=== PATIENT | male | born 1955 | race Caucasian/White ===

== ENCOUNTER 2021-06-05 04:11 | Observation (INO) | payer MEDICARE ==
[2021-06-05] MEDS ORDERED: TORAdol 30 mg Injection ONE (04:56)
[2021-06-05] MEDS ORDERED: TORAdol 30 mg Injection IV ONE (04:56)
--- NOTE | 2021-06-05 05:02 | ERPHSYRPT ---
<CLARISSA HENDERSON - Last Filed: 06/05/21 08:05> - History of Present Illness Historian: patient Exam Limitations: other (Poor historian) Patient Subjective Stated Complaint: Patient c/o right lower abdomen pain that radiates to his right side and right lower back. Indicates he has had one loose stool since the pain began. Patient ate Long [employer]oni yesterday afternoon and the pain began shortley after that. Pain has been increasing since then and becomes worse when he takes a deep breath. Denies N/V. Triage Nursing Assessment: Patient brought back to ED in a wheelchair. He is alert and oriented and answering questions appropriately. Abdomen is large, firm, with hypoactive bowel sounds. Bowel sounds to right side of abdomen are distant. Pain increases with palpation. Timing/Duration: yesterday Activities at Onset: rest Quality: aching, dullness Abdominal Pain Onset Location: flank (R flank) Pain Radiation: no radiation Severity of Pain-Max: severe Severity of Pain-Current: severe Modifying Factors: Improves With: breathing Associated Symptoms: diarrhea, No back, No chest pain, No diaphoresis, No fever/chills, No fatigue, No headache, No heartburn, No loss of appetite, No nausea, No neck pain, No rash, No shortness of breath, No syncope, No testicular pain, No vomiting, No weakness Previous symptoms: no prior history Hx Tetanus, Diphtheria Vaccination/Date Given: Yes (Not tetanus) Hx Influenza Vaccination/Date Given: Yes Hx Pneumococcal Vaccination/Date Given: No Immunizations Up to Date: Yes <COREY CARMONA - Last Filed: 06/09/21 07:33> - History of Present Illness Physician History: 65 yo wm w R flank pain x 1 day which is 8/10, worse w deep breaths, and described as a dull ache. He has had mild diarrhea but denies N/V/dysuria/hematuria/fever/melena/hematochezia. (COREY CARMONA) Allergies/Adverse Reactions: Penicillins Allergy (Verified 06/05/21 04:22) Home Medications: Atorvastatin Calcium [Lipitor] 1 tab PO HS 06/05/21 [History] Hydrocodone/Acetaminophen [Hydrocodone-Acetamin 7.5-325] 1 tab PO BID PRN 06/05/21 [History] Insulin Glargine [Lantus Insulin] 50 unit SQ DAILY 06/05/21 [History] Insulin Lispro [Humalog] See Protocol SQ CLARIFY 06/05/21 [History] Zolpidem Tartrate 10 mg [Ambien 10 MG] 1 tab PO HS 06/05/21 [History] Travel Risk - International Travel Have you traveled outside of the country in past 3 weeks: No - Coronavirus Screening Are you exhibiting any of the following symptoms?: Yes Symptoms: Vomiting/Diarrhea Close contact with a COVID-19 positive Pt in past 14-21 Days: No - Vaccine Status Have you recieved a Covid-19 vaccination: Yes [employer]: [employer] - Vaccination Dates Date of 2cond Vaccination (if applicable): 2020 <COREY CARMONA Filed: 06/09/21 07:33> - Review of Systems Constitutional: No Symptoms Eyes: No Symptoms Ears, Nose, & Throat: No Symptoms Respiratory: No Symptoms Cardiac: No Symptoms Abdominal/Gastrointestinal: No Symptoms, Abdominal Pain, Diarrhea, No Nausea, No Vomiting, No Constipation, No Hematemesis, No Hematochezia, No Melena, No Dysphagia, No Appetite Changes Genitourinary Symptoms: No Symptoms Musculoskeletal: No Symptoms Skin: No Symptoms Neurological: No Symptoms Psychological: No Symptoms Endocrine: No Symptoms Hematologic/Lymphatic: No Symptoms Immunological/Allergic: No Symptoms <COREY CARMONA Filed: 06/09/21 07:33> - Past Medical History Pertinent Past Medical History: Yes Neurological History: No Pertinent History ENT History: No Pertinent History Cardiac History: High Cholesterol, Hypertension Respiratory History: No Pertinent History Endocrine Medical History: Diabetes Type II, Hypothyroidism Musculoskeletal History: Arthritis, Other GI Medical History: No Pertinent History History: No Pertinent History Psycho-Social History: Depression Male Reproductive Disorders: No Pertinent History Other Medical History: INSOMNIA, LUMBAGO - Past Surgical History Past Surgical History: Yes Neuro Surgical History: No Pertinent History Cardiac: No Pertinent History Respiratory: No Pertinent History Gastrointestinal: Hernia Repair, Other Genitourinary: No Pertinent History Musculoskeletal: Other Male Surgical History: No Pertinent History Other Surgical History: Left knee replacement, VBG - Social History Smoking Status: Current every day smoker How long have you smoked: 38 years Exposure to second hand smoke: No Drug Use: none Patient Lives Alone: Yes Significant Family History: no pertinent family hx <COREY CARMONA Filed: 06/09/21 07:33> - Physical Exam General Appearance: no apparent distress Eye Exam: PERRL/EOMI, eyes nml inspection Ears, Nose, Throat Exam: normal ENT inspection, TMs normal, pharynx normal, moist mucous membranes Neck Exam: normal inspection, non-tender, supple, full range of motion Respiratory Exam: normal breath sounds, lungs clear, airway intact Cardiovascular Exam: regular rate/rhythm, normal heart sounds, normal peripheral pulses, No murmur Gastrointestinal/Abdomen Exam: soft, normal bowel sounds, tenderness (TTP R flank wo guarding/rebound) Back Exam: normal inspection, normal range of motion, No CVA tenderness Extremity Exam: normal inspection, normal range of motion Neurologic Exam: alert, oriented x 3, cooperative, 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, normal mood/affect, nml cerebellar function, nml station & gait, sensation nml, No motor deficits, No sensory deficit Skin Exam: normal color, warm, dry Lymphatic Exam: No adenopathy SpO2 Interpretation: normal SpO2: 98 O2 Delivery: Room Air <COREY CARMONA - Last Filed: 06/09/21 07:33> - Nursing Vital Signs Nursing Vital Signs: Initial Vital Signs Temperature 97.6 F 06/05/21 04:24 Pulse Rate 75 06/05/21 04:24 Respiratory Rate 18 06/05/21 04:24 Blood Pressure 175/87 06/05/21 04:24 O2 Sat by Pulse Oximetry 98 06/05/21 04:24 Pain Scale Pain Intensity 3 Hypertensive (COREY CARMONA) Ordered Tests: Medication Summary Discontinued Medications Generic Name Dose Route Start Last Admin Trade Name Freq PRN Reason Stop Dose Admin Acetaminophen 650 mg 06/05/21 15:19 Acetaminophen 325 Mg Tablet PO 07/05/21 15:18 Q4H PRN PRN PAIN AND/OR FEVER Hydrocodone Bitart/Acetaminophen 1 tablet 06/05/21 12:56 06/06/21 05:04 Hydrocodone/Acetamin 10-325 Mg Tablet PO 06/10/21 12:55 1 tablet Q4H PRN PRN Administration PAIN Hydrocodone Bitart/Acetaminophen 1 tab 06/05/21 14:33 Hydrocodone /Apap 7.5/325 Mg 1 Each Tablet PO 06/10/21 14:32 BIDPRN PRN PAIN Albuterol/Ipratropium 3 ml 06/05/21 10:37 Ipratropium/Albuterol Sulfate 3 Ml Ampul.Neb IH 07/05/21 10:36 Q4HPRN PRN SHORTNESS OF BREATH/WHEEZING Bupivacaine HCl Confirm 06/05/21 11:34 Bupivacaine Hcl 2.5 Mg/Ml 10 Ml Administered 06/05/21 11:35 Dose 10 ml .ROUTE .STK-MED ONE Ephedrine Sulfate Confirm 06/05/21 12:04 Ephedrine Sulfate 50 Mg/Ml Administered 06/05/21 12:05 Dose 50 mg .ROUTE .STK-MED ONE Famotidine 40 mg 06/05/21 11:00 06/05/21 11:16 Famotidine 20 Mg/1 Vial IV 06/05/21 15:00 40 mg 1HRPRIOR BRIAN Administration Fentanyl Citrate Confirm 06/05/21 11:30 Fentanyl Citrate 100 Mcg/2 Ml* Vial Administered 06/05/21 11:31 Dose 100 mcg .ROUTE .STK-MED ONE Metronidazole 500 mg in 100 mls @ 200 mls/hr 06/05/21 07:30 06/05/21 09:20 Flagyl 500 Mg Ivpb IV 06/05/21 07:59 Infused STAT STA Infusion Levofloxacin/Dextrose 500 mg in 100 mls @ 100 mls/hr 06/05/21 07:30 06/05/21 07:32 Levofloxacin 500mg/100ml D5w IV 06/05/21 08:29 Not Given STAT STA Levofloxacin/Dextrose 750 mg in 150 mls @ 100 mls/hr 06/05/21 07:32 06/05/21 09:21 Levofloxacin 750mg/150ml D5w IV 06/05/21 09:01 Infused STAT STA Infusion Levofloxacin/Dextrose Confirm 06/05/21 07:32 Levofloxacin 750mg/150ml D5w Administered 06/05/21 07:33 Dose 750 mg in 150 mls @ ud IV .STK-MED ONE Sodium Chloride 1,000 mls @ 125 mls/hr 06/05/21 08:00 06/05/21 07:55 Sodium Chloride 0.9% 1000 Ml IV 07/05/21 07:59 125 mls/hr .Q8H BRIAN Administration Metronidazole Confirm 06/05/21 07:51 Flagyl 500 Mg Ivpb Administered 06/05/21 07:52 Dose 500 mg in 100 mls @ ud IV .STK-MED ONE Metronidazole Confirm 06/05/21 08:14 Flagyl 500 Mg Ivpb Administered 06/05/21 08:15 Dose 500 mg in 100 mls @ ud IV .STK-MED ONE Metronidazole 500 mg in 100 mls @ 200 mls/hr 06/05/21 12:00 06/05/21 13:30 Flagyl 500 Mg Ivpb IV 07/05/21 11:59 Not Given Q6HT BRIAN Clindamycin HCl/Dextrose 900 mg in 50 mls @ 100 mls/hr 06/05/21 11:30 06/05/21 11:16 Clindamycin-D5w 900 Mg/50 Ml IV 07/05/21 11:29 100 mls/hr ONCALLTOOR BRIAN Administration Lactated Ringer's 1,000 mls @ 50 mls/hr 06/05/21 11:30 06/05/21 11:16 Lactated Ringers IV 07/05/21 11:29 50 mls/hr .Q20H BRIAN Administration Lactated Ringer's Confirm 06/05/21 12:40 Lactated Ringers Administered 06/05/21 12:41 Dose 1,000 mls @ ud IV .STK-MED ONE Clindamycin HCl/Dextrose 900 mg in 50 mls @ 100 mls/hr 06/05/21 14:00 06/06/21 15:05 Clindamycin-D5w 900 Mg/50 Ml IV 07/05/21 13:59 100 mls/hr Q8HT BRIAN Administration Sodium Chloride 1,000 mls @ 60 mls/hr 06/05/21 15:00 06/06/21 05:05 Sodium Chloride 0.45% 1000 Ml IV 07/05/21 14:59 60 mls/hr .[id number] BRIAN Administration Insulin Glargine 50 unit 06/06/21 10:00 06/06/21 09:38 Insulin Glargine 1 Unit SQ 07/06/21 09:59 50 unit DAILY BRIAN Administration Insulin Human Lispro 0 unit 06/05/21 10:37 06/06/21 08:51 Insulin Lispro 1 Unit SQ 07/05/21 10:36 9 unit UD PRN Administration HYPERGLYCEMIA Insulin Human Lispro 0 unit 02/17/22 14:45 Insulin Lispro 1 Unit SQ 07/05/21 14:44 UD PRN Insulin Human Lispro 0 unit 06/06/21 09:02 06/06/21 12:24 Insulin Lispro 1 Unit SQ 07/06/21 09:01 10 unit UD PRN Administration HYPERGLYCEMIA Insulin Human Regular 10 unit 06/05/21 08:04 06/05/21 08:17 Insulin Regular, Human 1 Unit IV 06/05/21 08:05 10 unit STAT ONE Administration Insulin Human Regular Confirm 06/05/21 08:14 Insulin Regular, Human 1 Unit Administered 06/05/21 08:15 Dose 10 unit .ROUTE .STK-MED ONE Ketorolac Tromethamine 15 mg 06/05/21 04:56 06/05/21 04:57 Ketorolac Tromethamine 30 Mg/Ml Inj IV 06/05/21 04:57 15 mg STAT ONE Administration Ketorolac Tromethamine Confirm 06/05/21 04:56 Ketorolac Tromethamine 30 Mg/Ml Inj Administered 06/05/21 04:57 Dose 30 mg .ROUTE .STK-MED ONE Lidocaine HCl Confirm 06/05/21 11:27 Lidocaine - Mpf 2% 5 Ml Vial Administered 06/05/21 11:28 Dose 5 ml .ROUTE .STK-MED ONE Lidocaine HCl Confirm 06/05/21 11:39 Lidocaine Hcl 4 Ml Solution (Lta Kit) Administered 06/05/21 11:40 Dose 4 ml TP .STK-MED ONE Metoclopramide HCl 10 mg 06/05/21 11:00 06/05/21 11:16 Metoclopramide Hcl 10 Mg/2 Ml Vial IV 06/05/21 15:00 10 mg 1HRPRIOR BRIAN Administration Midazolam HCl Confirm 06/05/21 11:30 Midazolam Hcl 2 Mg/2 Ml Vial Administered 06/05/21 11:31 Dose 2 mg .ROUTE .STK-MED ONE Morphine Sulfate 4 mg 06/05/21 08:05 06/05/21 08:18 Morphine Sulfate 4 Mg/Ml Injection IV 06/05/21 08:06 4 mg STAT ONE Administration Morphine Sulfate Confirm 06/05/21 08:14 Morphine Sulfate 4 Mg/Ml Injection Administered 06/05/21 08:15 Dose 4 mg .ROUTE .STK-MED ONE Morphine Sulfate 2 mg 06/05/21 10:37 Morphine Sulfate 2 Mg/Ml Inj IV 06/10/21 10:36 Q4H PRN PRN PAIN Morphine Sulfate 2 - 4 mg 06/05/21 14:18 06/05/21 19:28 Morphine Sulfate 2 Mg/Ml Inj IV 06/10/21 14:17 4 mg Q2HPRN PRN Administration PAIN Non-Formulary Medication 1 dose 06/05/21 14:45 Insulin Lispro SQ 07/05/21 14:44 CLARIFY BRIAN Ondansetron HCl 4 mg 06/05/21 08:05 06/05/21 08:18 Ondansetron Hcl 4 Mg/2 Ml Vial IV 06/05/21 08:06 4 mg STAT ONE Administration Ondansetron HCl Confirm 06/05/21 08:12 Ondansetron Hcl 4 Mg/2 Ml Vial Administered 06/05/21 08:13 Dose 4 mg .ROUTE .STK-MED ONE Ondansetron HCl 4 mg 06/05/21 10:37 Ondansetron Hcl 4 Mg/2 Ml Vial IV 07/05/21 10:36 Q6H PRN PRN NAUSEA/VOMITING Ondansetron HCl Confirm 06/05/21 11:27 Ondansetron Hcl 4 Mg/2 Ml Vial Administered 06/05/21 11:28 Dose 4 mg .ROUTE .STK-MED ONE Pantoprazole Sodium 40 mg 06/05/21 10:37 06/06/21 09:38 Pantoprazole 40 Mg Vial IV 07/05/21 10:36 40 mg Q24H10 BRIAN Administration Propofol Confirm 06/05/21 11:27 Propofol 10 Mg/Ml 20ml Vial Administered 06/05/21 11:28 Dose 400 mg IV .STK-MED ONE Rocuronium [place] Confirm 06/05/21 11:27 Rocuronium [place] 100 Mg/10ml Vial Administered 06/05/21 11:28 Dose 40 mg .ROUTE .STK-MED ONE Simvastatin 10 mg 06/05/21 22:00 06/05/21 21:18 Simvastatin 10 Mg Tablet PO 07/05/21 21:59 10 mg HS BRIAN Administration Succinylcholine Chloride Confirm 06/05/21 11:27 Succinylcholine Chloride 200mg/10 Ml Vial Administered 06/05/21 11:28 Dose 140 mg .ROUTE .STK-MED ONE Sugammadex Sodium Confirm 06/05/21 12:47 Sugammadex Sodium 200 Mg/2 Ml Vial Administered 06/05/21 12:48 Dose 400 mg IV .STK-MED ONE Zolpidem Tartrate 10 mg 06/05/21 22:00 06/05/21 21:18 Zolpidem Tartrate 10 Mg Tablet PO 07/05/21 21:59 10 mg HS BRIAN Administration Lab/Rad Data: Laboratory Result Diagrams 06/05/21 05:15 06/05/21 05:15 Laboratory Results 06/05/21 06/05/21 06/05/21 Range/Units 08:25 08:19 05:25 WBC (4.0-10.5) K/mm3 RBC (4.1-5.6) M/mm3 Hgb (12.5-18.0) gm/dl Hct (42-50) % MCV (78-100) fl MCH (26-32) pg MCHC (32-36) g/dl RDW (11.5-14.0) % Plt Count (150-450) K/mm3 MPV (7.5-11.0) fl Gran % (36.0-66.0) % Eos # (Auto) (0-0.5) Absolute Lymphs (auto) (1.0-4.6) Absolute Monos (auto) (0.0-1.3) Lymphocytes % (24.0-44.0) % Monocytes % (0.0-12.0) % Eosinophils % (0.00-5.0) % Basophils % (0.0-0.4) % Absolute Granulocytes (1.4-6.9) Basophils # (0-0.4) Sodium (137-145) mmol/L Potassium (3.5-5.1) mmol/L Chloride (98-107) mmol/L Carbon Dioxide (22-30) mmol/L Anion Gap (5-15) MEQ/L BUN (9-20) mg/dL Creatinine (0.66-1.25) mg/dL Estimated GFR ML/MIN Glucose (74-106) mg/dL Calcium (8.4-10.2) mg/dL Total Bilirubin (0.2-1.3) mg/dL AST (17-59) U/L ALT (0-50) U/L Alkaline Phosphatase (38-126) U/L Troponin I < 0.012 (0.000-0.034) ng/mL Serum Total Protein (6.3-8.2) g/dL Albumin (3.5-5.0) g/dL Amylase (30-110) U/L Lipase (23-300) U/L Urine Color (YELLOW) Urine Appearance (CLEAR) Urine pH (5-6) Ur Specific [place] (1.005-1.025) Urine Protein (Negative) Urine Ketones (NEGATIVE) Urine Blood (0-5) Vel[place]/ul Urine Nitrite (NEGATIVE) Urine Bilirubin (NEGATIVE) Urine Urobilinogen (0-1) mg/dL Ur Leukocyte Esterase (NEGATIVE) Urine WBC (Auto) (0-5) /HPF Urine RBC (Auto) (0-2) /HPF U Epithel Cells (Auto) (FEW) /HPF Urine Bacteria (Auto) (NEGATIVE) /HPF Urine Culture Reflexed (NO) Urine Glucose (NEGATIVE) mg/dL Influenza Type A Ag NEGATIVE (NEGATIVE) Influenza Type B Ag NEGATIVE (NEGATIVE) RSV (PCR) NEGATIVE (Negative) SARS-CoV-2 (PCR) NEGATIVE (NEGATIVE) SARS-CoV-2 Ag (Rapid) NEGATIVE (NEGATIVE) 06/05/21 06/05/21 06/05/21 Range/Units 05:15 05:15 05:15 WBC 11.2 H (4.0-10.5) K/mm3 RBC 4.77 (4.1-5.6) M/mm3 Hgb 15.0 (12.5-18.0) gm/dl Hct 44.1 (42-50) % MCV 92.5 (78-100) fl MCH 31.4 (26-32) pg MCHC 34.0 (32-36) g/dl RDW 13.4 (11.5-14.0) % Plt Count 219 (150-450) K/mm3 MPV 10.9 (7.5-11.0) fl Gran % 81.0 H (36.0-66.0) % Eos # (Auto) 0.15 (0-0.5) Absolute Lymphs (auto) 1.02 (1.0-4.6) Absolute Monos (auto) 0.91 (0.0-1.3) Lymphocytes % 9.1 L (24.0-44.0) % Monocytes % 8.2 (0.0-12.0) % Eosinophils % 1.3 (0.00-5.0) % Basophils % 0.4 (0.0-0.4) % Absolute Granulocytes 9.04 H (1.4-6.9) Basophils # 0.04 (0-0.4) Sodium 131 L (137-145) mmol/L Potassium 4.1 (3.5-5.1) mmol/L Chloride 99 (98-107) mmol/L Carbon Dioxide 21 L (22-30) mmol/L Anion Gap 14.6 (5-15) MEQ/L BUN 12 (9-20) mg/dL Creatinine 0.79 (0.66-1.25) mg/dL Estimated GFR > 60.0 ML/MIN Glucose 432 H (74-106) mg/dL Calcium 9.2 (8.4-10.2) mg/dL Total Bilirubin 0.70 (0.2-1.3) mg/dL AST 18 (17-59) U/L ALT 20 (0-50) U/L Alkaline Phosphatase 101 (38-126) U/L Troponin I < 0.012 (0.000-0.034) ng/mL Serum Total Protein 6.7 (6.3-8.2) g/dL Albumin 4.1 (3.5-5.0) g/dL Amylase 35 (30-110) U/L Lipase 32 (23-300) U/L Urine Color (YELLOW) Urine Appearance (CLEAR) Urine pH (5-6) Ur Specific [place] (1.005-1.025) Urine Protein (Negative) Urine Ketones (NEGATIVE) Urine Blood (0-5) Vel[place]/ul Urine Nitrite (NEGATIVE) Urine Bilirubin (NEGATIVE) Urine Urobilinogen (0-1) mg/dL Ur Leukocyte Esterase (NEGATIVE) Urine WBC (Auto) (0-5) /HPF Urine RBC (Auto) (0-2) /HPF U Epithel Cells (Auto) (FEW) /HPF Urine Bacteria (Auto) (NEGATIVE) /HPF Urine Culture Reflexed (NO) Urine Glucose (NEGATIVE) mg/dL Influenza Type A Ag (NEGATIVE) Influenza Type B Ag (NEGATIVE) RSV (PCR) (Negative) SARS-CoV-2 (PCR) (NEGATIVE) SARS-CoV-2 Ag (Rapid) (NEGATIVE) 02/17/22 Range/Units 04:52 WBC (4.0-10.5) K/mm3 RBC (4.1-5.6) M/mm3 Hgb (12.5-18.0) gm/dl Hct (42-50) % MCV (78-100) fl MCH (26-32) pg MCHC (32-36) g/dl RDW (11.5-14.0) % Plt Count (150-450) K/mm3 MPV (7.5-11.0) fl Gran % (36.0-66.0) % Eos # (Auto) (0-0.5) Absolute Lymphs (auto) (1.0-4.6) Absolute Monos (auto) (0.0-1.3) Lymphocytes % (24.0-44.0) % Monocytes % (0.0-12.0) % Eosinophils % (0.00-5.0) % Basophils % (0.0-0.4) % Absolute Granulocytes (1.4-6.9) Basophils # (0-0.4) Sodium (137-145) mmol/L Potassium (3.5-5.1) mmol/L Chloride (98-107) mmol/L Carbon Dioxide (22-30) mmol/L Anion Gap (5-15) MEQ/L BUN (9-20) mg/dL Creatinine (0.66-1.25) mg/dL Estimated GFR ML/MIN Glucose (74-106) mg/dL Calcium (8.4-10.2) mg/dL Total Bilirubin (0.2-1.3) mg/dL AST (17-59) U/L ALT (0-50) U/L Alkaline Phosphatase (38-126) U/L Troponin I (0.000-0.034) ng/mL Serum Total Protein (6.3-8.2) g/dL Albumin (3.5-5.0) g/dL Amylase (30-110) U/L Lipase (23-300) U/L Urine Color STRAW (YELLOW) Urine Appearance CLEAR (CLEAR) Urine pH 6.0 (5-6) Ur Specific [place] 1.028 (1.005-1.025) Urine Protein NEGATIVE (Negative) Urine Ketones NEGATIVE (NEGATIVE) Urine Blood NEGATIVE (0-5) Velasquez/ul Urine Nitrite NEGATIVE (NEGATIVE) Urine Bilirubin NEGATIVE (NEGATIVE) Urine Urobilinogen NEGATIVE (0-1) mg/dL Ur Leukocyte Esterase NEGATIVE (NEGATIVE) Urine WBC (Auto) NONE (0-5) /HPF Urine RBC (Auto) NONE (0-2) /HPF U Epithel Cells (Auto) NONE (FEW) /HPF Urine Bacteria (Auto) NONE (NEGATIVE) /HPF Urine Culture Reflexed NO (NO) Urine Glucose >=500 (NEGATIVE) mg/dL Influenza Type A Ag (NEGATIVE) Influenza Type B Ag (NEGATIVE) RSV (PCR) (Negative) SARS-CoV-2 (PCR) (NEGATIVE) SARS-CoV-2 Ag (Rapid) (NEGATIVE) - Progress Progress: improved, pain not gone completely, re-examined Discussed with Dr.: Rosa Aguirre Will see patient in: hospital (observation) Counseled pt/family regarding: lab results, diagnosis, rad results <CLARISSA HENDERSON - Last Filed: 06/05/21 08:05> <COREY CARMONA - Last Filed: 06/09/21 07:33> - Progress Progress Note: Patient is checked out to me at shift change from Dr. Carmona. Patient p resented with right-sided abdominal pain. Has a white count of 11, chemistries grossly unremarkable except for elevated blood glucose in 400s, given IV insulin. Patient is made n.p.o. CT showed acute appendicitis. Discussed with Dr. Mark Cochran, reviewed history, work-up, recommended admission to hospitalist service and patient would be taken to the OR later today. Discussed with Dr. Coy, history/work-up and general surgery recommendations and patient is accepted for admission. 06/05/21 08:05 (CLARISSA HENDERSON) 06/05/21 06:43 15mg IV Toradol w improvement in pain (COREY CARMONA) - Departure Departure Disposition: Observation Critical Care Time: No <CLARISSA HENDERSON - Last Filed: 06/05/21 08:05> <COREY CARMONA - Last Filed: 06/09/21 07:33> - Departure Clinical Impression: Acute appendicitis Qualifiers: Acute appendicitis type: unspecified acute appendicitis type Qualified Code(s): K35.80 - Unspecified acute appendicitis Condition: Stable
[2021-06-05 05:05] LABS: Appearance CLEAR (CLEAR); Bilirubin NEGATIVE (NEGATIVE); Blood NEGATIVE Ery/ul (0-5); Glucose >=500 mg/dL (NEGATIVE); Ketones NEGATIVE (NEGATIVE); Leukocyte Esterase NEGATIVE (NEGATIVE); Nitrite NEGATIVE (NEGATIVE); Protein,Urine Dip NEGATIVE (Negative); Specific Gravity 1.028 (1.005-1.025); Urobilinogen NEGATIVE mg/dL (0-1)
[2021-06-05 05:18] LABS: Absolute Neutrophil Ct (ANC) 9.04 (1.4-6.9); Basophil (Absolute #) 0.04 (0-0.4); Eosinophil % 1.3 % (0.00-5.0); Eosinophil (Absolute #) 0.15 (0-0.5); Hematocrit 44.1 % (42-50); Lymphocyte (Absolute #) 1.02 (1.0-4.6); Lymphocytes % 9.1 % (24.0-44.0); Mean Cell Volume 92.5 fl (78-100); Mean Corpuscular Hemoglobin 31.4 pg (26-32); Mean Platelet Volume 10.9 fl (7.5-11.0); Monocyte (Absolute #) 0.91 (0.0-1.3); Monocytes % 8.2 % (0.0-12.0); Platelet Count 219 K/mm3 (150-450); Red Blood Count 4.77 M/mm3 (4.1-5.6); Red Cell Distribution Width 13.4 % (11.5-14.0); White Blood Count 11.2 K/mm3 (4.0-10.5)
[2021-06-05 05:29] LABS: ALBUMIN 4.1 g/dL (3.5-5.0); ALKALINE PHOSPHATASE 101 U/L (38-126); AMYLASE 35 U/L (30-110); ANION GAP 14.6 MEQ/L (5-15); BLOOD UREA NITROGEN 12 mg/dL (9-20); CHLORIDE 99 mmol/L (98-107); Calcium 9.2 mg/dL (8.4-10.2); Carbon Dioxide 21 mmol/L (22-30); Creatinine 1 0.79 mg/dL (0.66-1.25); EST GLOMERULAR FILTRATION RATE > 60.0 ML/MIN; Glucose 432 mg/dL (74-106); LIPASE 32 U/L (23-300); Potassium 4.1 mmol/L (3.5-5.1); SGOT/AST 18 U/L (17-59); SGPT/ALT 20 U/L (0-50); SODIUM 131 mmol/L (137-145); Total Protein 6.7 g/dL (6.3-8.2)
[2021-06-05 05:48] LABS: COVID AG -BINAX NOW RAPID TEST NEGATIVE (NEGATIVE)
[2021-06-05] MEDS ORDERED: FLAGYL 500 MG IVPB 500 MG/100 ML BAG IV STA (07:30)
[2021-06-05] MEDS ORDERED: Levofloxacin 500MG/100ML D5W 500 MG/100 ML BAG IV STA (07:30)
[2021-06-05] MEDS ORDERED: LEVOFLOXACIN 750MG/150ML D5W 750 MG/150 ML BAG IV STA (07:32)
[2021-06-05] MEDS ORDERED: LEVOFLOXACIN 750MG/150ML D5W 750 MG/150 ML BAG IV ONE (07:32)
[2021-06-05] MEDS ORDERED: FLAGYL IV ONE (07:51)
[2021-06-05] MEDS ORDERED: Sodium Chloride 0.9% 1000 ML 1,000 ML IV SCH (08:00)
[2021-06-05] MEDS ORDERED: HUMULIN R IV ONE (08:04)
[2021-06-05] MEDS ORDERED: MORPHINE SULFATE 4 MG INJ IV ONE (08:05)
[2021-06-05] MEDS ORDERED: Zofran 4 MG/2 ML VIAL IV ONE (08:05)
[2021-06-05] MEDS ORDERED: Zofran 4 MG/2 ML VIAL ONE ×2 (08:12→11:27)
[2021-06-05] MEDS ORDERED: FLAGYL 500 MG IVPB 500 MG/100 ML BAG IV ONE (08:14)
[2021-06-05] MEDS ORDERED: HUMULIN R ONE (08:14)
[2021-06-05] MEDS ORDERED: MORPHINE SULFATE 4 MG INJ ONE (08:14)
--- NOTE | 2021-06-05 09:08 | XRAY ---
Indication: Right flank/right lower quadrant pain. Diarrhea and elevated WBC. Multiple contiguous axial images obtained through the abdomen and pelvis prior to and following 80 cc Isovue 370 contrast as ordered. Comparison: None Lung bases demonstrates mild bilateral subsegmental atelectasis/scarring. No infiltrate or effusion. Heart not enlarged. Noncontrasted images demonstrates several small gallstones. No CT features for cholecystitis or biliary distention. There has been bariatric surgery. Noncontrasted stomach and bowel loops appear nonobstructed. Abnormal prominent appendix up to 13 mm diameter with periappendiceal stranding favoring acute pancreatitis. Incidental appendicolith at the base of the appendix. No free fluid/air. Postcontrast images demonstrates normal visceral enhancement and renal excretion. Fatty hepatomegaly measuring 25.7 cm. Remaining liver, gallbladder, pancreas, spleen, adrenal glands, kidneys, ureters, and bladder are unremarkable. Moderate scattered aortoiliac calcifications. No AAA or pathologic retroperitoneal lymphadenopathy. Osseous structures intact with moderate degenerative changes throughout the thoracolumbar spine. Impression: 1. CT findings as detailed favoring acute appendicitis. No complications. 2. Cholelithiasis better evaluated with sonogram if clinically warranted. 3. Fatty of cardiomegaly, arteriosclerotic disease, and chronic bony findings. Comment: Preliminary interpretation made by [facility]. No critical discrepancy.
[2021-06-05 09:22] LABS: INFLUENZA A NEGATIVE (NEGATIVE); INFLUENZA B NEGATIVE (NEGATIVE); RESPIRATORY SYNCTIAL VIRUS NEGATIVE (Negative); SARS-CoV-2 Xpert Express NEGATIVE (NEGATIVE)
[2021-06-05] MEDS ORDERED: MORPHINE SULFATE 2 MG INJ IV PRN (10:37)
[2021-06-05] MEDS ORDERED: DUONEB 0.5-3 MG/3 ml Neb IH PRN (10:37)
[2021-06-05] MEDS ORDERED: Zofran 4 MG/2 ML VIAL IV PRN (10:37)
[2021-06-05] MEDS ORDERED: Reglan 10 MG/2 ML IV SCH (11:00)
[2021-06-05] MEDS ORDERED: Pepcid 20 MG VIAL IV SCH (11:00)
[2021-06-05] MEDS: HUMALOG SQ PRN ×3 (11:06→21:21)
[2021-06-05] MEDS: PROTONIX 40 MG IV IV SCH (11:06)
--- NOTE | 2021-06-05 11:10 | HP ---
DATE OF SURGERY: 06/05/2021 HISTORY OF PRESENT ILLNESS: The patient is a 65 year-old male who was seen today in the emergency room for acute appendicitis. The patient states yesterday he ate some [place] Loni and went home. He started to develop some right lower quadrant pain this pain progressively got worse overnight. He woke up at 0230 hours to smoke a cigar and he was still hurting. He tried to lay back down and this did not help the pain. The patient said he had a touch of diarrhea on Wednesday. He reports diarrhea and constipation rotating on and off. He denied nausea or vomiting with this pain. He denied fever or chills. The patient reports colonoscopy at age 49 was normal. The patient was tender in the right lower quadrant today. The patient did have CT scan once he presented to the emergency room today. PAST MEDICAL HISTORY: Diabetes, hyperlipidemia, depression, back pain, vertigo. PAST SURGICAL HISTORY: Band gastropexy for weight loss. Left inguinal hernia. Left knee replacement. ALLERGIES: PENICILLIN. MEDICATIONS: Atorvastatin, Humalog, Lantus, [place] for back pain. FAMILY HISTORY: Heart attack. SOCIAL HISTORY: Smokes cigarettes. Denies alcohol. REVIEW OF SYSTEMS: CONSTITUTIONAL: Denies fever or chills. CHEST: Denies shortness of breath. CVS: Denies chest pain. ABDOMEN: Reports right lower quadrant pain. PHYSICAL EXAMINATION: GENERAL: No acute distress. CHEST: Nonlabored. No shortness of breath. CVS: Regular rate and rhythm. ABDOMEN: Soft, tender in the right lower quadrant. EXTREMITIES: Within normal limits. IMPRESSION: A 65-year-old male with acute right lower quadrant pain progressively getting worse since yesterday. The CT was reviewed. CT finding the patient has acute appendicitis. PLAN: Taking patient to OR today for laparoscopic appendectomy. Procedure and risks were discussed with the patient. The patient verbalized his understanding and will plan for laparoscopic appendectomy today with Dr. Finesse Cochran. As dictated by Eva Hunter NP.
[2021-06-05] MEDS ORDERED: Quelicin Fliptop 200 MG/10 ML ONE (11:27)
[2021-06-05] MEDS ORDERED: Xylocaine-Mpf 2% 5 Ml Vial ONE (11:27)
[2021-06-05] MEDS ORDERED: DIPRIVAN 200 MG/20 ML IV ONE (11:27)
[2021-06-05] MEDS ORDERED: Zemuron 100 MG/10 ML ONE (11:27)
[2021-06-05] MEDS ORDERED: CLINDAMYCIN-D5W 900 MG/50 ML*** 900 MG/50 ML BAG IV SCH (11:30)
[2021-06-05] MEDS ORDERED: SUBLIMAZE 100 MCG/2 ML ONE (11:30)
[2021-06-05] MEDS ORDERED: Versed 2 MG/2 ML Injection ONE (11:30)
[2021-06-05] MEDS ORDERED: Lactated Ringers 1,000 ML IV SCH (11:30)
[2021-06-05] MEDS ORDERED: Sensorcaine 0.25% 10 ML ONE (11:34)
[2021-06-05] MEDS ORDERED: Pre-Attached Lta Kit TP ONE (11:39)
[2021-06-05] MEDS ORDERED: FLAGYL 500 MG IVPB 500 MG/100 ML BAG IV SCH (12:00)
[2021-06-05] MEDS ORDERED: Ephedrine Sulfate 50 MG/ML ONE (12:04)
[2021-06-05] MEDS ORDERED: Lactated Ringers 1,000 ML IV ONE (12:40)
[2021-06-05] MEDS ORDERED: BRIDION 200MG/2ML IV ONE (12:47)
[2021-06-05] MEDS ORDERED: HYDROCODONE-ACETAMIN 10-325 MG PO PRN (12:56)
--- NOTE | 2021-06-05 13:10 | OP ---
SURGERY DATE/TIME: 06/05/2021 1141 PREOPERATIVE DIAGNOSIS: Acute appendicitis. POSTOPERATIVE DIAGNOSIS: Acute appendicitis with microperforation. PROCEDURE: Laparoscopic appendectomy. SURGEON: Finesse Cochran M.D. [employer]: Eva Hunter NP. ANESTHESIA: General. COMPLICATIONS: None. CONDITION: Stable. INDICATION: The patient has symptomatic, acute appendicitis from the emergency room. DESCRIPTION OF PROCEDURE: Taken to surgery. General anesthetic. Routine prep and drape. He had previous gastric bypass. He had full upper midline incision. Right upper quadrant Veress inserted. There were adhesions against the midline. Additional port just below and close to the midline. He did have a 1-inch diastasis stripe in the lower abdomen and we stayed away from this about 1 cm to the right of this. A 5 port down by Jacy's. The appendix was mildly retrocecal. It was mobilized with a gallstone scoop. The entire silhouette was then able to be seen. It was mobilized at the base. The base is taken with 3.5 cartridge. The base of the appendix is taken right at the colon. The mesentery is then mobilized and taken with 2.5 cartridge and placed in a condom bag and removed. The field was reasonably dry. It was suctioned irrigated. Surgicel was placed. A 10 mm JONATHAN drain placed down the right gutter coming up out of the epigastric port, this is secured with 2-0 PDS. The hole closure device was used at the 12 site this was air tight and hemostatic. CO2 was exsufflated. Skin closed with 4-0 Vicryl and Steri-Strips. The patient tolerated the procedure satisfactorily.
[2021-06-05] MEDS ORDERED: NORCO 7.5/325 MG TAB PO PRN (14:33)
[2021-06-05] MEDS ORDERED: NON-FORMULARY ITEM (Insulin Lispro 1 UNIT Ml) SQ SCH (14:45)
[2021-06-05] MEDS ORDERED: HUMALOG SQ PRN (14:45)
[2021-06-05] MEDS: CLINDAMYCIN-D5W 900 MG/50 ML*** 900 MG/50 ML BAG IV SCH ×2 (14:46→21:18)
[2021-06-05] MEDS ORDERED: TYLENOL 325 MG PO PRN (15:19)
[2021-06-05] MEDS: MORPHINE SULFATE 2 MG INJ IV PRN ×2 (17:02→19:28)
[2021-06-05] MEDS ORDERED: Ambien 10 MG PO SCH (22:00)
[2021-06-05] MEDS ORDERED: Zocor 10MG PO SCH (22:00)
[2021-06-05] MEDS ORDERED: NON-FORMULARY ITEM (Atorvastatin Calcium 10 MG Tablet) PO SCH (22:00)
[2021-06-06] MEDS: CLINDAMYCIN-D5W 900 MG/50 ML*** 900 MG/50 ML BAG IV SCH ×2 (05:05→15:05)
[2021-06-06 05:42] LABS: Absolute Neutrophil Ct (ANC) 5.89 (1.4-6.9); Basophil (Absolute #) 0.04 (0-0.4); Eosinophil % 1.4 % (0.00-5.0); Eosinophil (Absolute #) 0.11 (0-0.5); Hematocrit 42.3 % (42-50); Hemoglobin 13.8 gm/dl (12.5-18.0); Lymphocyte (Absolute #) 0.89 (1.0-4.6); Lymphocytes % 11.6 % (24.0-44.0); Mean Cell Volume 95.5 fl (78-100); Mean Corpuscular Hemoglobin 31.2 pg (26-32); Mean Corpuscular Hgb Concent. 32.6 g/dl (32-36); Mean Platelet Volume 10.8 fl (7.5-11.0); Monocyte (Absolute #) 0.77 (0.0-1.3); Neutrophil % 76.5 % (36.0-66.0); Platelet Count 177 K/mm3 (150-450); Red Blood Count 4.43 M/mm3 (4.1-5.6); Red Cell Distribution Width 13.4 % (11.5-14.0); White Blood Count 7.7 K/mm3 (4.0-10.5)
[2021-06-06 06:08] LABS: ALBUMIN 3.7 g/dL (3.5-5.0); ALKALINE PHOSPHATASE 69 U/L (38-126); ANION GAP 12.1 MEQ/L (5-15); BLOOD UREA NITROGEN 8 mg/dL (9-20); CHLORIDE 101 mmol/L (98-107); Calcium 8.1 mg/dL (8.4-10.2); Carbon Dioxide 24 mmol/L (22-30); Creatinine 1 0.72 mg/dL (0.66-1.25); EST GLOMERULAR FILTRATION RATE > 60.0 ML/MIN; Glucose 253 mg/dL (74-106); Potassium 3.8 mmol/L (3.5-5.1); SGOT/AST 19 U/L (17-59); SGPT/ALT 16 U/L (0-50); SODIUM 133 mmol/L (137-145); Total Protein 6.5 g/dL (6.3-8.2)
[2021-06-06] MEDS: HUMALOG SQ PRN (08:51)
[2021-06-06] MEDS ORDERED: HUMALOG SQ PRN (09:02)
[2021-06-06] MEDS: PROTONIX 40 MG IV IV SCH (09:38)
[2021-06-06] MEDS ORDERED: Lantus Insulin SQ SCH (10:00)
[2021-06-06 16:52] VITALS: BP 143/85; PULSE 65
[2021-06-09 07:32] VITALS: O2SAT 98
== END 2021-06-06 18:43 | disposition home or self-care (01) ==
LOC: ED 04:11 → MED SURG 09:40
PROVIDERS: ADMIT Surgery; ATTEND Family Medicine
DX: K35.80 Unspecified acute appendicitis (principal); E78.00 Pure hypercholesterolemia, unspecified; I10 Essential (primary) hypertension; E11.9 Type 2 diabetes mellitus without complications; Z20.828 Contact with and (suspected) exposure to other viral communicable diseases; Z79.899 Other long term (current) drug therapy; Z72.0 Tobacco use
CPT/HCPCS: 0241U; 36000; 36415; 44970; 74178; 80053; 81001; 82150; 82947; 83036; 83690; 84484; 85025; 87070; 87075; 87205; 93268; 96365; 96366; 96374; 96375; 96376; 99000; 99284; G0378; 99140; J0330; J1815; J1817; J1885; J1956; J2250; J2270; J2405; J2704; J3010; A9270-GY